=== PATIENT | female | born 1960 | race Two or more races ===

== ENCOUNTER 2021-02-23 12:10 | Emergency (ER) | payer OTHER ==
[~2021-02-23] VITALS: Ht 172.7 cm; Wt 50.8 kg
[2021-02-23] MEDS ORDERED: GLIPIZIDE XL10 MG (14:34)
[2021-02-23] MEDS ORDERED: METFORMIN HCL1000 M2 (14:34)
[2021-02-23] MEDS ORDERED: MONTELUKAST SOD10 MG (14:34)
[2021-02-23] MEDS ORDERED: ZESTRIL2.5 MG (14:34)
[2021-02-23] MEDS ORDERED: MELOXICAM15 MG (14:35)
[2021-02-23] MEDS ORDERED: ULTRAM50 MG (14:35)
[2021-02-23] MEDS ORDERED: ZANAFLEX4 MG (14:35)
[2021-02-23] MEDS ORDERED: DUI500 PO (16:44)
== END 2021-02-23 17:18 ==
LOC: ER 12:10
DX: L03.114 Cellulitis of left upper limb (principal)

== ENCOUNTER 2024-05-20 20:15 | Emergency (ER) | payer OTHER ==
[~2024-05-20] VITALS: Ht 157.5 cm; Wt 83.9 kg
[~2024-05-20 20:15] MED LIST: DUI500 PO; GLIPIZIDE XL10 MG; MELOXICAM15 MG; METFORMIN HCL1000 M2; MONTELUKAST SOD10 MG; ULTRAM50 MG; ZANAFLEX4 MG; ZESTRIL2.5 MG
[2024-05-20] MEDS ORDERED: CEPHALEXIN500 MG PO (23:25)
[2024-05-20] MEDS ORDERED: CEFTRIAXONE SODIUM 1,000 MG VIAL IM ONE (23:30)
[2024-05-20] MEDS ORDERED: CEFTRIAXONE SODIUM 1,000 MG VIAL ONE (23:49)
[2024-05-20] MEDS ORDERED: LIDOCAINE HCL 1% 10ML VIAL ONE (23:52)
== END 2024-05-21 00:18 | disposition home or self-care (01) ==
LOC: ER 20:15
DX: S80.811A Abrasion, right lower leg, initial encounter (principal); X58.XXXA Exposure to other specified factors, initial encounter; Y93.89 Activity, other specified; Y92.89 Other specified places as the place of occurrence of the external cause; Y99.9 Unspecified external cause status; I10 Essential (primary) hypertension; E11.9 Type 2 diabetes mellitus without complications; Z79.84 Long term (current) use of oral hypoglycemic drugs; Z87.09 Personal history of other diseases of the respiratory system